=== PATIENT | male | born 1960 | race Caucasian/White ===

== ENCOUNTER 2017-02-10 21:12 | Emergency (ER) | payer MEDICAID ==
[2017-02-10] MEDS ORDERED: HYDROCOD/APAP 5/325 PREPACK#6 BTL TAKEHOME ONE (22:25)
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
[2017-02-10] MEDS ORDERED: IBUPROFEN 600 MG TAB PO ONE (22:46)
[2017-02-10 22:57] VITALS: BP 135/81; PULSE 75; RESP 16; TEMP 97.9; O2SAT 95
== END 2017-02-10 22:57 | disposition home or self-care (01) ==
DX: S22.31XA Fracture of one rib, right side, initial encounter for closed fracture (principal); E11.9 Type 2 diabetes mellitus without complications; F17.200 Nicotine dependence, unspecified, uncomplicated; W01.0XXA Fall on same level from slipping, tripping and stumbling without subsequent striking against object, initial encounter; Y99.8 Other external cause status; Y93.02 Activity, running

== ENCOUNTER 2019-03-13 12:43 | Emergency (ER) | payer MEDICAID ==
[2019-03-13] MEDS ORDERED: NS 500 ML IV ONE (12:54)
[2019-03-13 13:11] LABS: PLATELET COUNT 212 10^3/uL (150-400)
--- NOTE | 2019-03-13 14:12 | EDPHY ---
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 No associated SOB, radiating pain, jaw pain , N/V, diaphoresis, or abdominal pain. EKG x [address] Small showing no acute ST/T wave changes or arrhythmia. Troponin x 2 both negative, the 2nd being 6 hours after onset of pain. CXR with no acute cardiopulmonary disease or pneumomediastinum. Labs reassuring aside from hyperglycemia but without sign of DKA or acidosis. On reassessments patient was feeling well and was often found sleeping. I had a long discusion with him regarding his HEART score of 3- 4 based on hx and comorbidities. Admission was discussed and offered for further cardiac workup and patient has declined. An outpatient cardiology referral was placed in his chart and I encouraged him to make a f/u appt in the next 2-3 days. Low threshold for return to ED sooner for worsening symptoms as discussed in person and in d/c papers. DIFFERENTIAL DX: Differential diagnosis includes but not limited to myocardial ischemia, pulmonary embolus, chest wall pain, pleural inflammation, musculoskeletal chest wall pain, aortic aneurysm, and pulmonary infectious causes. [ED PROCEDURES:] See lab and/or imaging results below ED COURSE: 2:00 p.m.: Case discussed with Dr. Small. EKG reviewed with Dr. Small, normal sinus rhythm, no acute ST or T-wave changes. Troponin negative. Patient heart score of 3-4 based on risk factors. Will plan for repeat 4 hr troponin. Repeat EKG. If these are normal discussed admission versus discharge home. Discussed this plan with patient who agrees. He states "actually I think the pain began when I first vaped at 9am this morning and then again an hour before I called EMS" Will do repeat 6 hour troponin. 3:00 p.m.: Repeat EKG shared with Dr. Small, essentially unchanged from prior. Awaiting repeat troponin. 3:20pm: Repeat troponin negative. HEART score discussed. Results discussed with the patient. Admission offered. He would like to go home. Case management to meet with the patient regarding transportation home and follow-up care. I did discuss warning signs for return to ED. Cardiology referral placed. CHIEF COMPLAINT: Left anterior lower chest pain HPI: 58 yo male with PMH of HTN, DM, obesity, bipolar and PTSD arrives to ED by EMS after c/o chest pain. 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 No associated radiating pain to arm, neck or jaw. Pain is reproducible to palpation of left lower anterior rib area. No pleuritic component. No SOB, abdominal pain, N/V, diaphoresis, color change. No reported hx of CAD or AK. + FH of CAD. He did take 4 baby ASA at home before calling EMS. No leg swelling or hx of DVT/PE. PAST MEDICAL HISTORY: Obesity, hypertension, type 2 diabetes, bipolar, PTSD See nurse/triage notes for additional history if applicable Pertinent Past Surgical History: Appendectomy Family History: Father of AK at 50 Social History: Vapes REVIEW OF SYSTEMS: All other systems negative Constitutional: No fever, no chills, appetite change. Eyes: No discharge, vision change] ENT: No sore throat, congestion, ear pain. Cardiovascular: Positive for intermittent sharp left chest pain, no palpitations. Respiratory: No cough, no shortness of breath. Gastrointestinal: No abdominal pain, no vomiting, diarrhea. Musculoskeletal: No back pain, joint swelling, joint pain, myalgias. Skin: No rashes, color change. Neurological: No headache, dizziness, weakness. PHYSICAL EXAM: General Appearance: Alert, oriented, appropriate, obese, cooperative, NAD, well hydrated, non-toxic appearing, hypertensive, no hypoxia. HEENT: Oropharynx clear is no erythema or exudates, no tonsillar hypertrophy or asymmetry. Dentition without abnormality. Eyes: PERRLA, no acute vision change, nystagmus, swelling, discharge, pain or photosensitivity. Neck: Supple, nontender, no lymphadenopathy, no midline pain, FROM, no meningismus. No carotid bruits. Respiratory: There are no retractions, lungs are clear to auscultation. Reproducible pain to palp left lower anterior chest wall Cardiac: Regular rate and rhythm, no murmurs or gallops. Gastrointestinal: Abdomen is soft, nontender Neurological: Alert and oriented x 3 Skin: Warm, dry, no rashes, no nodules on palpation. Musculoskeletal: Extremities are symmetrical, full range of motion, no tenderness, deformity, swelling, or erythema. MEDICAL DECISION MAKING: Patient was seen independently. Secondary supervising physician at time of evaluation was Dr. Small Diagnosis: Intermittent left sided CP. New, requires workup Summary: See Assessment and Plan for summary of ED visit Clinical lab tests: ordered / reviewed Independent visualization of images, tracing, or specimens: YES Discussed patient with another provider: Dr Small Patient Progress: Stable for discharge, refused admission - History Smoking Status: Light smoker - Objective Vital Signs: Initial Vital Signs Temperature (C) 36.6 C 03/13/19 12:45 Heart Rate 79 03/13/19 12:45 Respiratory Rate 15 03/13/19 12:45 Blood Pressure 149/91 H 03/13/19 12:45 O2 Sat (%) 93 03/13/19 12:45 O2 Delivery Mode Room Air Allergies/Adverse Reactions: propoxyphene HCl [From Darvon] Allergy (Verified 06/11/16 21:15) tetracycline Allergy (Verified 06/11/16 21:15) Home Medications: Medication Instructions Recorded LaMICtal 200 mg DAILY 04/17/16 Vistaril 50 mg TID PRN 04/17/16 Abilify 10 mg HS 02/10/17 GABAPENTIN 200 mg PO TID PRN 02/10/17 Cymbalta 30 MG (*) 3 tab DAILY 03/17/17 Herbals/Supplements -Info Only 03/17/17 IBUPROFEN 1 tab DAILY PRN 03/17/17 Metformin HCl 1 tab BID 03/17/17 SIMVASTATIN 1 tab HS 03/17/17 Laboratory Results: Laboratory Results 03/13/19 12:30 03/13/19 12:30 Medications Given: Discontinued Medications Sodium Chloride (Ns) 500 mls @ 1,000 mls/hr IV EDNOW ONE PRN Reason: Protocol Stop: 03/13/19 13:23 Last Admin: 03/13/19 13:08 Dose: 500 mls Point of Care Test Results: Chemistry 03/13/19 03/13/19 14:56 12:53 POC Troponin I 0.01 ng/mL ng/mL 0.01 ng/mL ng/mL (0.00-0.08) (0.00-0.08) Departure - Departure Disposition: Home, Routine, Self-Care Clinical Impression: Chest pain in adult Condition: Good Instructions: Chest Pain (ED) Additional Instructions: DISCHARGE INSTRUCTIONS FROM YOUR DOCTOR Thank you for visiting our emergency department today. You were treated by a physician certified ophthalmic surgical assistant today and your case was reviewed with our ED Attending physician. Please keep in mind that discharge from the emergency department does not mean that there is nothing wrong - it simply means that we have not identified an emergency condition that requires further evaluation or treatment in the hospital. You should always plan to follow up with primary care for re- evaluation of your condition in the next 2-3 days. If you have been referred to a specialist, please call as soon as possible (today or tomorrow) to schedule your follow up appointment at the appropriate time. DIAGNOSTIC WORKUP IN THE EMERGENCY DEPARTMENT INCLUDED EKG X2, CARDIAC ENZYMES X2, CHEST X-RAY, AND ROUTINE LAB WORK. WE HAVE NOT IDENTIFIED ANY ARRHYTHMIA OR ABNORMAL CARDIAC ENZYMES TODAY. REMAINDER OF LAB WORK IS REASSURING. CHEST X-RAY SHOWS NO ACUTE ABNORMALITY. COPY OF CHEST X-RAY PROVIDED ON CD. WE HAVE PLACED AN OUTPATIENT CARDIOLOGY REFERRAL, PLEASE BE LOOKING OUT FOR A PHONE CALL HOWEVER WE STRONGLY RECOMMEND THAT YOU ALSO CALL THE RN WELLNESS FOR FOLLOW-UP IN THE NEXT 2-3 DAYS. PLEASE FOLLOW UP WITH HER PRIMARY CARE DOCTOR WELL. RETURN TO THE EMERGENCY DEPARTMENT IMMEDIATELY FOR SEVERE, WORSENING OR PERSISTENT CHEST PAIN, SHORTNESS OF BREATH, LIGHTHEADEDNESS, NAUSEA, SWEATING EPISODES, OR ANY OTHER CONCERNS. People present with illnesses and injuries in different ways, and it is always possible that we have missed something. You may always return for re-evaluation if symptoms worsen or if they are not improving or if you develop new/different symptoms. Again, thank you for choosing our emergency department. We hope that you feel better. Referrals: Claude Cabezas MD [Medical Doctor] - 2-3 days, call for appt. Sola Peña MD [Primary Care Provider] - 1-2 days without fail
--- NOTE | 2019-03-13 15:24 | CPEKG ---
Test Reason : OPEN Blood Pressure : / mmHG Vent. Rate : 077 BPM Atrial Rate : 077 BPM P-R Int : 169 ms QRS Dur : 108 ms QT Int : 392 ms P-R-T Axes : 004 -45 056 degrees QTc Int : 444 ms Sinus rhythm LAD, consider left anterior fascicular block Confirmed by Madai Small ([id number]) on 03/13/2019 3:24:08 PM Referred By: Madai Small Confirmed By:Madai Small
--- NOTE | 2019-03-13 15:24 | CPEKG ---
Test Reason : OPEN Blood Pressure : / mmHG Vent. Rate : 067 BPM Atrial Rate : 067 BPM P-R Int : 176 ms QRS Dur : 108 ms QT Int : 413 ms P-R-T Axes : 009 -35 039 degrees QTc Int : 436 ms Sinus rhythm Left axis deviation Confirmed by Madai Zhang ([id number]) on 03/13/2019 3:23:41 PM Referred By: MADAI ZHANG Confirmed By:Madai Zhang
[2019-03-13 15:42] VITALS: BP 123/85
== END 2019-03-13 15:54 | disposition home or self-care (01) ==
LOC: EDUNIT#
DX: R07.89 Other chest pain (principal); I10 Essential (primary) hypertension; E11.9 Type 2 diabetes mellitus without complications; E66.9 Obesity, unspecified; F31.9 Bipolar disorder, unspecified; F43.10 Post-traumatic stress disorder, unspecified; E86.9 Volume depletion, unspecified; Z90.89 Acquired absence of other organs
CPT/HCPCS: 84484-ER

== ENCOUNTER 2019-03-28 15:17 | Observation (INO) | payer MEDICAID ==
[2019-03-28] MEDS ORDERED: NS 1,000 ML IV ONE (15:18)
[2019-03-28] MEDS ORDERED: ASPIRIN EC 325 MG TAB PO ONE (15:18)
[2019-03-28] MEDS ORDERED: DIAZEPAM 5 MG TAB PO ONE (15:18)
[2019-03-28] MEDS ORDERED: diphenhydrAMINE 25 MG CAP PO ONE (15:18)
[2019-03-28] MEDS ORDERED: FAMOTIDINE 20 MG TAB PO ONE (15:18)
[2019-03-28] MEDS ORDERED: LIDOCAINE 1% 300 MG/30 ML SDV ONE (15:38)
[2019-03-28] MEDS ORDERED: MIDAZOLAM 2 MG/2 ML VIAL ONE (15:38)
[2019-03-28] MEDS ORDERED: fentaNYL 100 MCG/2 ML INJ ONE (15:38)
[2019-03-28] MEDS ORDERED: HEPARIN 10,000 UNIT/10 ML MDV (1,000 UNIT/ML) ONE (15:39)
[2019-03-28] MEDS ORDERED: VERAPAMIL 5 MG/2 ML VIAL ONE (15:39)
[2019-03-28] MEDS ORDERED: IOPAMIDOL (ISOVUE 370) 100 ML BTL IV ONE (15:40)
[2019-03-28 15:41] LABS: PLATELET COUNT 197 10^3/uL (150-400)
--- NOTE | 2019-03-28 15:45 | PDPROPOC ---
Sedation Plan of Care Sedation Plan of Care: vital signs stable, mental status noted, patient educated of risks, benefits, alternatives, patient can tolerate sedation ASA Classification: ASA 3 Planned drugs: fentanyl, midazolam Mallampati Score: Class 2 Mallampati Reference Image: Patient passed 3-3-2 rule?: No
--- NOTE | 2019-03-28 15:48 | PDHPUP ---
History & Physical Update H&P update statement: This history and physical update is based on an assessment of the patient which was completed after admission or registration (within 24 hours), but prior to the surgery/procedure. H&P update: H&P reviewed & patient examined, changes noted (abnormal ECG-ST elevation)
[2019-03-28 15:57] LABS: INR 1.05 (0.83-1.16); PROTIME(PATIENT) 13.3 SEC (12.0-15.0)
[2019-03-28] MEDS ORDERED: ETOMIDATE 40 MG/20 ML INJ ONE (16:14)
--- NOTE | 2019-03-28 16:38 | PDDXCAT ---
Diagnostic Cath Note - . Date: 03/28/19 Outside Cutter Hand: Justin - Procedure Access: right wrist Procedure: left heart catheterization, coronary angiography - Materials Left Heart Cath size: 5F Left Heart Cath materials: JL3.5, JR4.0, pigtail - Findings-Left Heart Catheterization LM: The left main is 6mm in size and trifurcates into an LAD, Circumflex and Ramus system. There is no evidence of flow-limiting obstruction. There is NUNU III flow. LAD: The left anterior descending artery is 3.5mm in size. The vessel gives rise to an important diagonal branch. There is no evidence of coronary obstruction. There is NUNU III flow. LCX: The left circumflex is 3mm in size and codominant. The vessel gives rise to an important obtuse marginal branch. There is no evidence of flow-limiting obstruction. There is NUNU III flow. RCA: The right coronary artery is 3mm in size and codominant. The vessel gives irse to a PDA branch. There is no evidence of coronary obstruction. There is NUNU III flow throughout. Ramus: The Ramus is 2mm in size. There is NUNU III flow and no evidence of flow limiting obstruction. EDP: 23mmHg LVEF: 50% Wall motion: On the LV gram there is normal LV systolic function. The EF is 50% . There appears to be resting segmental wall motion abnormalities involving the distal anterior wall and apex as well the distal inferior wall. The visualized portion of the thoracic aortic valve reveals three sinuses of valsalva most consistent with a trileaflet valve. There is no gradient on pullback across the aortic valve. There is no evidence of olga dissection or aneurysm formation of the thoracic aorta. - Findings-Right Heart Catheterization AO: 113/73/91 Complications: NONE Estimated blood loss: <50ml Closure method: TR Band Assessment: The patient has no evidence of flow-limiting coronary obstruction. The LV gram was not fully opacified and was suggestive of apical ballooning cardiomyopathy. Plan: The patient has non-flow limiting coronary disease that should be treated medically to achieve a Non-HDL Cholesterol of less than 100 mg/dL and anti platelet therapy with ASA is also recommended specifically a dose of 162 mg per day. The patient also should be treated with oral beta blockers and his rhythm watched overnight an echocardiogram is scheduled for the AM. Intervention: NONE Patient Problems: Problems Problem Status Onset Right rib fracture Acute Suicidal ideation Acute
[2019-03-28] MEDS ORDERED: NITROGLYCERIN 0.4 MG BTL SL PRN (16:53)
[2019-03-28] MEDS ORDERED: OXYCODONE/APAP 5/325 TAB PO PRN (16:53)
[2019-03-28] MEDS ORDERED: HYDROCODONE/APAP 5/325 TAB PO PRN (16:53)
[2019-03-28] MEDS ORDERED: ONDANSETRON 4 MG/2 ML VIAL IVP PRN (16:53)
[2019-03-28] MEDS ORDERED: ATROPINE SULFATE 1 MG/10 ML SYR IVP PRN (16:53)
[2019-03-28] MEDS: LORazepam 0.5 MG TAB PO PRN (21:56)
[2019-03-29] MEDS: LORazepam 0.5 MG TAB PO PRN ×2 (07:56→16:11)
[2019-03-29] MEDS ORDERED: PNEUMOCOCCAL 0.5ML VACCINE VIAL (PNEUMOVAX 23) IM ONE (09:00)
--- NOTE | 2019-03-29 09:30 | ASMTCMCOM ---
CM Note CM Note Notes: Patient chart reviewed for discharge planning purposes, 58 year old male admitted via ED with chest pain. No current needs identified. Plan: Dc to home when medically stable . Date Signed: 03/29/2019 09:29 AM Electronically Signed By:Rebekah Martinez RN
[2019-03-29 15:01] VITALS: BP 112/76
[2019-03-29] MEDS ORDERED: IBUPROFEN 200 MG TAB PO PRN (17:25)
--- NOTE | 2019-03-29 17:29 | ECHO ---
[email or web address] [address] [address] Main: [phone] Echocardiography Examination Transthoracic Name: NASIM CERRATO MR#: [id number] Study Date: 03/29/2019 Study Time: 11:32 AM Date of : 1960 Age: 58 year(s) Height: 172.7 cm (68 in.) Weight: 97.52 kg (215 lb.) BSA: 2.11 m2 Gender: Male Examination: Echo Contrast: Image Quality: Rhythm: Heart Rate: 65 bpm BP: 103 mmHg/72 mmHg Indication: Post Cath, R/O Takotsubo Cardiomyopathy Procedure Staff Referring Physician: Pipe Coverer And Insulator: Jose Juan Tam [facility] Reading Physician: Anjali Godwin MD Requesting Provider: Ordering Physician: Luis Anderson MD Indication: Post Cath, R/O Takotsubo Cardiomyopathy Measurements Chambers AV/MV Label Value Normal Value Label Value Normal Value LVOT Vmax 1.04 m/s (0.7m/s - 1.1m/s) AV PGmax 8 mmHg LVOTd 2.1 cm (1.9cm - 2.1cm) AV PGmean 4 mmHg LVOT VTI 21.3 cm (18cm - 22cm) AV Vmax 1.43 m/s LVDd, 2D 4.7 cm (4.2cm - 5.9cm) BRITTANIE (Vmax) 2.5 cm2 LVDs, 2D 3.1 cm (2.1cm - 4cm) BRITTANIE (VTI) 2.8 cm2 IVSd, 2D 1.1 cm (0.6cm - 1.1cm) MV E Vmax 0.63 m/s LVPWd, 2D 1.1 cm (0.6cm - 1cm) MV A Vmax 0.44 m/s LVEF, 2D 63 % (54% - 74%) MV E/A 1.43 LVOT PGmean 2 mmHg MV E/E' lateral 6.5 LVOT Vmean 0.61 m/s MV E/E' septal 9.3 (0.5 - 1.7) RVDd, 2D 3.5 cm (1.9cm - 3.8cm) MV E' septal 0.07 m/s LA Volume, BP 34 ml (18ml - 58ml) MV E' lateral 0.1 m/s LAESV index, BP 16.1 ml/m2 MV E/E' mean 7.41 Additional Vessels MV E' mean 0.08 m/s Label Value Normal Value TV/PV AoRoot, MM 3.7 cm (2.2cm - 3.7cm) Label Value Normal Value PV PGmax 2 mmHg PV Vmax, Caliper 0.79 m/s (0.6m/s - 0.9m/s) Patient: NASIM CERRATO Study Date: 03/29/2019 Page 1 of 2 11:32 AM Conclusions 1. The left ventricle is normal in size and systolic function. Ejection fraction is 60%. No regional wall motion abnormalities. 2. The right ventricle is mildly dilated. RV systolic function is normal. 3. no significant valvular disease. 4. Unable to estimate PA systolic pressure Findings Left Ventricle: There is no evidence of Takotsubo cardiomyopathy.. Left ventricle is normal in size. Normal global systolic left ventricular function. Left ventricle wall thickness is normal. There are no regional wall motion abnormalities. Left ventricular diastolic function parameters are normal. IVS: The septum is intact. Right Ventricle: Mildly dilated right ventricle. Right ventricular systolic function is normal. Left Atrium: The left atrium is normal in size. IAS: Normal appearing atrial septum. Right Atrium: The right atrium is normal in size. Mitral Valve: Mitral valve is normal in appearance. No mitral regurgitation. No mitral valve stenosis. Aortic Valve: Aortic leaflets exhibit normal cuspal separation. No aortic valve regurgitation. There is no aortic stenosis. Tricuspid Valve: Tricuspid valve leaflets are normal in appearance and function. No tricuspid regurgitation. No tricuspid valve stenosis. Pulmonic Valve: Pulmonic leaflets exhibit normal cuspal separation. No pulmonic valve regurgitation is evident. There is no pulmonic valve stenosis. Aorta: The aorta is normal. The aortic root size in M-mode measures 3.7 cm. Aorta Measurements AoRoot, MM is 3.7 cm. Pulmonary Artery: The pulmonary artery morphology appears normal. IVC: The inferior vena cava is normal in size and course. Pericardium: A pericardial fat pad is present. No pericardial effusion. No pleural effusion present. Exam Details Procedure Ordered: Echo (No Signature Object) Patient: NASIM CERRATO Study Date: 03/29/2019 Page 2 of 2 11:32 AM [id number]
[2019-03-29] MEDS ORDERED: hydrOXYzine HCL 50 MG TAB PO PRN (17:45)
--- NOTE | 2019-03-29 18:26 | GDS ---
[f rep st] DISCHARGE SUMMARY HISTORY OF PRESENT ILLNESS: The patient is a 58-year-old man with history of bipolar illness, posttr aumatic stress disorder, and prior suicide attempts who presented to the hospital for complaints of c hest discomfort. He did trip over his brief case and fractured a rib recently, and as part of his wo rkup was scheduled to have a stress test at our office at [facility]. When the patient was connec shivam to the machine, there was noted ST-segment elevation in II, III, and aVF suggestive and concernin g for a possible injury pattern; for that reason, the stress portion of the test was aborted and ragini ent was sent over for an urgent cardiac catheterization. HOSPITAL COURSE: The patient underwent selective coronary angiography, left heart catheterization, a nd left ventriculogram, and on the left ventriculogram, which was complicated by ectopy, there did ap pear to be a possible distal anterior wall and apical wall motion abnormality, which could have been consistent with a resolving takotsubo or apical ballooning cardiomyopathy. For this reason, and sheree use of the baseline EKG changes, the patient was admitted overnight and telemetry was monitored. The re was no evidence of significant tachy dysrhythmia, PVCs, ventricular tachycardia, or other problems on the continuous conveyor screen drier. The patient's right ventricle was mildly enlarged, but there was no evide nce of apical ballooning myopathy on the basis of the echocardiogram that was performed. The patient 's vital signs have remained stable and he is chest-pain free. The puncture site of the right radial artery where the catheterization was performed is pristine without significant ecchymosis or hematom a. There is an intact pulse with good capillary refill to the fingertips of the ipsilateral hand. DISCHARGE MEDICATIONS: The patient's discharge medications are to include atorvastatin 40 mg p.o. da precious, gabapentin 300 p.o. b.i.d., glipizide 10 mg p.o. daily, hydroxyzine 50 mg p.o. b.i.d., ibuprofen 200 to 400 p.o. q.6 hours as needed for pain, lamotrigine 100 mg tablet in the evening and 200 mg p. o. in the morning, lisinopril 10 mg p.o. daily. Lorazepam 0.5 mg p.o. q.i.d. metformin 1000 mg p.o. b.i.d. to be held for 2 more days, Effexor XR 75 mg p.o. daily, Trileptal 150 in the morning and 300 mg p.o. q.h.s., as well as multivitamin. DISCHARGE INSTRUCTIONS: His activities will be restricted by his standard wrist precautions. The pa tient is to return promptly to the emergency room for chest discomfort, pressure, tightness, syncope, palpitations, or other clinical symptoms of concern. Copy requested to: Primary care physician /[id number]
[2019-03-29] MEDS ORDERED: lamoTRIgine 100 MG TAB PO SCH (21:00)
[2019-03-29] MEDS ORDERED: GABAPENTIN 300 MG CAP PO SCH (21:00)
[2019-03-29] MEDS ORDERED: ATORVASTATIN CALCIUM 40 MG TAB PO SCH (21:00)
[2019-03-30] MEDS ORDERED: LISINOPRIL 10 MG TAB PO SCH (09:00)
[2019-03-30] MEDS ORDERED: VENLAFAXINE XR 150 MG CAP PO SCH (09:00)
[2019-03-30] MEDS ORDERED: HERBALS PO SCH (09:00)
[2019-03-30] MEDS ORDERED: [UNRECOGNIZED DRUG - OTHER] PO SCH (09:00)
[2019-03-30] MEDS ORDERED: MULTIVITAMINS 1 EACH TAB PO SCH (09:00)
[2019-03-30] MEDS ORDERED: OXcarbazepine 300 MG TAB PO SCH (09:00)
== END 2019-03-29 18:50 | disposition home or self-care (01) ==
LOC: FCATH 15:17 → F2W 17:04
PROVIDERS: ADMIT Internal Medicine Cardiovascular Disease; ATTEND Internal Medicine Cardiovascular Disease
DX: I25.10 Atherosclerotic heart disease of native coronary artery without angina pectoris (principal); F31.9 Bipolar disorder, unspecified; F43.10 Post-traumatic stress disorder, unspecified; Z91.5 Personal history of self-harm; Z23 Encounter for immunization
CPT/HCPCS: 90471; 93306; 93458; C1769; G0378; G0009; J1644; J2250; J3010; Q9967